=== PATIENT | male | born 1945 | race Caucasian/White ===

== ENCOUNTER 2020-07-15 08:59 | Day surgery (SDC) | payer MEDICARE, BC ==
[2020-07-15] VITALS (8 sets, daily range): BP systolic 127–137; BP diastolic 60–76
[~2020-07-15] VITALS: Ht 175.3 cm; Wt 102.6 kg
[2020-07-15] MEDS ORDERED: normal saline 1000ml 1,000 ML IV SCH ×4 (09:40→14:15)
[2020-07-15] MEDS ORDERED: cefazolin/dext.iso 2gm/100ml 100 ML IV ONE (09:40)
[2020-07-15] MEDS ORDERED: MIDAZolam 1mg/ml 10ml vial IV ONE (09:45)
[2020-07-15] MEDS ORDERED: fentaNYL/PF 50MCG/1 ML 2ML syringe IV ONE (09:45)
[2020-07-15 09:52] LABS: BASOPHILS % (AUTO) 0.6 % (0-1); EOSINOPHILS # (AUTO) 0.1 X10'3 (0-0.9); EOSINOPHILS % (AUTO) 2.1 % (0-6); HEMOGLOBIN 12.9 g/dl (14.0-17.9); LYMPHOCYTES # (AUTO) 0.8 X10'3 (1.1-4.8); LYMPHOCYTES % (AUTO) 14.7 % (21-51); MEAN CORPUSCULAR HEMOGLOBIN 26.2 PG (27.0-31.0); MEAN CORPUSCULAR HGB CONC 31.4 g/dL (33.0-36.5); MEAN CORPUSCULAR VOLUME 83.6 FL (78-98); MEAN PLATELET VOLUME 7.3 FL (7.4-10.4); MONOCYTES # (AUTO) 0.5 X10'3 (0-0.9); MONOCYTES % (AUTO) 9.2 % (2-12); NEUTROPHILS # (AUTO) 4.2 X10'3 (1.8-7.7); NEUTROPHILS % (AUTO) 73.4 % (42-75); PLATELET COUNT 248 X10'3 (140-440); RED BLOOD COUNT 4.91 X10'6 (4.70-6.10); RED CELL DISTRIBUTION WIDTH 17.4 % (11.5-14.5); WHITE BLOOD COUNT 5.7 X10'3 (4.5-11.0)
[2020-07-15] MEDS ORDERED: INSU100I31 SUBCUT (09:59)
[2020-07-15] MEDS ORDERED: BUPR-317 PO (09:59)
[2020-07-15] MEDS ORDERED: DAPA5TAB PO (09:59)
[2020-07-15] MEDS ORDERED: DULA0.75 SQ (09:59)
[2020-07-15] MEDS ORDERED: WARF4TAB69 PO (09:59)
[2020-07-15] MEDS ORDERED: ENOX100D5 SUBCUT (09:59)
[2020-07-15] MEDS ORDERED: SACU1TAB7 PO (09:59)
[2020-07-15] MEDS ORDERED: CITA10TA14 PO (09:59)
[2020-07-15] MEDS ORDERED: METF-900 PO (09:59)
[2020-07-15] MEDS ORDERED: POTA20TA19 PO (09:59)
[2020-07-15] MEDS ORDERED: FURO20TA4 PO (09:59)
[2020-07-15] MEDS ORDERED: PSYL0.4C2 PO (10:03)
[2020-07-15] MEDS ORDERED: TYLENOL (10:03)
[2020-07-15] MEDS ORDERED: MULT-1085 PO (10:03)
[2020-07-15] MEDS ORDERED: ASPI-1265 PO (10:03)
[2020-07-15] MEDS ORDERED: METAMUCIL PO (10:05)
[2020-07-15 10:07] LABS: ALBUMIN 3.8 G/DL (3.4-5.0); ANION GAP 7 (8-16); BLOOD UREA NITROGEN 18 MG/DL (7-18); BUN/CREATININE RATIO 13.8 (5.4-32.0); CALCIUM 8.5 MG/DL (8.5-10.1); CHLORIDE 105 MMOL/L (99-107); GLUCOSE 130 MG/DL (70-104); MAGNESIUM 1.8 MG/DL (1.5-2.4); POTASSIUM 4.4 MMOL/L (3.5-5.1); SODIUM 141 MMOL/L (135-145); eGFR 54 ML/MIN
[2020-07-15] MEDS ORDERED: midazolam 1 mg/ML 2ml injection ONE ×4 (11:31→13:32)
[2020-07-15] MEDS ORDERED: LIDOcaine 1% W/epiNEPHrine 1:100,000 20ml vial ONE (11:32)
[2020-07-15] MEDS ORDERED: ceFAZolin 1000mg inj ONE (11:32)
[2020-07-15] MEDS ORDERED: fentaNYL/PF 50MCG/1 ML 2ML syringe ONE ×3 (11:32→13:32)
[2020-07-15] MEDS ORDERED: vancomycin 1,000mg inj ONE (11:33)
[2020-07-15] MEDS ORDERED: amiodarone/D5 360MG/200ML BAG 200 ML IV ONE (12:00)
[2020-07-15] MEDS ORDERED: LIDOcaine 2% 10ml TOPICAL JELLY (Urojet) ONE (12:04)
[2020-07-15] MEDS ORDERED: proCHLORperazine 10 MG/2 ml inj ONE (12:16)
[2020-07-15] MEDS ORDERED: iohexol 350 MG/ML 50ML vial IV ONE ×2 (12:21→12:49)
[2020-07-15] MEDS ORDERED: HYDROcodone/acetaminophen 5mg/325mg tablet PO PRN (14:15)
[2020-07-15] MEDS ORDERED: HYDROcodone/acetaminophen 10/325mg tab PO PRN (14:15)
== END 2020-07-15 16:40 | disposition home or self-care (01) ==
LOC: SSTAY O 08:59
PROVIDERS: ATTEND Internal Medicine Cardiovascular Disease
DX: I42.0 Dilated cardiomyopathy (principal); I44.7 Left bundle-branch block, unspecified; E11.9 Type 2 diabetes mellitus without complications; I11.0 Hypertensive heart disease with heart failure; I50.22 Chronic systolic (congestive) heart failure; E78.49 Other hyperlipidemia; Z95.2 Presence of prosthetic heart valve; Z79.84 Long term (current) use of oral hypoglycemic drugs; Z79.82 Long term (current) use of aspirin; Z79.899 Other long term (current) drug therapy; Z96.651 Presence of right artificial knee joint; Z85.828 Personal history of other malignant neoplasm of skin; Z72.89 Other problems related to lifestyle; Z80.9 Family history of malignant neoplasm, unspecified; Z82.49 Family history of ischemic heart disease and other diseases of the circulatory system; Z79.01 Long term (current) use of anticoagulants
CPT/HCPCS: 33225; 33249; 36415; 71045; 80048; 82948; 83735; 85025; 85610; 92960; 93005; 99152; 99153; C1769; C1882; C1887; C1894; C1895; C1900; J0690; J0780; J2250; J3010; J3370; Q9967; A4565; A4620; A6258

== ENCOUNTER 2020-08-05 07:12 | Day surgery (SDC) | payer MEDICARE, BC ==
[2020-08-05] VITALS (9 sets, daily range): BP systolic 122–131; BP diastolic 68–80
[~2020-08-05] VITALS: Ht 15.2 cm; Wt 101.7 kg
[~2020-08-05 07:12] MED LIST: ASPI-1265 PO; BUPR-317 PO; CITA10TA14 PO; DAPA5TAB PO; DULA0.75 SQ; ENOX100D5 SUBCUT; FURO20TA4 PO; INSU100I31 SUBCUT; METAMUCIL PO; METF-900 PO; MULT-1085 PO; POTA20TA19 PO; SACU1TAB7 PO; TYLENOL; WARF4TAB69 PO
[2020-08-05] MEDS ORDERED: LIDOcaine 1% W/epiNEPHrine 1:100,000 20ml vial ONE (07:56)
[2020-08-05] MEDS ORDERED: fentaNYL/PF 50MCG/1 ML 2ML syringe ONE (07:56)
[2020-08-05] MEDS ORDERED: midazolam 1 mg/ML 2ml injection ONE ×2 (07:56→09:43)
[2020-08-05] MEDS ORDERED: vancomycin 1,000mg inj ONE (07:56)
[2020-08-05] MEDS ORDERED: AMIO200T61 PO (07:59)
[2020-08-05] MEDS ORDERED: ATOR40TA72 PO (07:59)
[2020-08-05] MEDS ORDERED: cefazolin/dext.iso 2gm/100ml 100 ML IV ONE (08:00)
[2020-08-05 08:27] LABS: ALBUMIN 3.7 G/DL (3.4-5.0); ANION GAP 8 (8-16); BLOOD UREA NITROGEN 19 MG/DL (7-18); BUN/CREATININE RATIO 14.5 (5.4-32.0); CALCIUM 8.7 MG/DL (8.5-10.1); CHLORIDE 104 MMOL/L (99-107); CREATININE 1.31 MG/DL (0.60-1.10); GLUCOSE 128 MG/DL (70-104); MAGNESIUM 1.8 MG/DL (1.5-2.4); POTASSIUM 4.7 MMOL/L (3.5-5.1); SODIUM 140 MMOL/L (135-145); TOTAL CARBON DIOXIDE 28.4 MMOL/L (24-32); eGFR 53 ML/MIN
[2020-08-05 08:28] LABS: BASOPHILS % (AUTO) 0.5 % (0-1); EOSINOPHILS # (AUTO) 0.1 X10'3 (0-0.9); HEMATOCRIT 38.4 % (42.0-52.0); HEMOGLOBIN 12.5 g/dl (14.0-17.9); LYMPHOCYTES # (AUTO) 0.7 X10'3 (1.1-4.8); LYMPHOCYTES % (AUTO) 11.2 % (21-51); MEAN CORPUSCULAR HGB CONC 32.6 g/dL (33.0-36.5); MEAN CORPUSCULAR VOLUME 85.9 FL (78-98); MONOCYTES # (AUTO) 0.6 X10'3 (0-0.9); MONOCYTES % (AUTO) 9.3 % (2-12); NEUTROPHILS # (AUTO) 4.8 X10'3 (1.8-7.7); PLATELET COUNT 320 X10'3 (140-440); RED BLOOD COUNT 4.47 X10'6 (4.70-6.10); RED CELL DISTRIBUTION WIDTH 19.1 % (11.5-14.5); WHITE BLOOD COUNT 6.2 X10'3 (4.5-11.0)
--- NOTE | 2020-08-05 09:20 | NUR ---
Pt left unit for procedure
[2020-08-05 09:30] LABS: PLATELET ESTIMATE NORMAL
[2020-08-05 09:31] LABS: ANISOCYTOSIS 2+
[2020-08-05] MEDS ORDERED: ketorolac tromethamine 15mg/ml inj. IV PRN (10:55)
[2020-08-05] MEDS ORDERED: normal saline 1000ml 1,000 ML IV SCH (10:55)
--- NOTE | 2020-08-05 11:16 | NUR ---
Pt voided 250ml clear, dark yellow
== END 2020-08-05 13:55 | disposition home or self-care (01) ==
LOC: SSTAY O 07:12
PROVIDERS: ATTEND Internal Medicine Cardiovascular Disease
DX: T82.867A Thrombosis due to cardiac prosthetic devices, implants and grafts, initial encounter (principal); I42.8 Other cardiomyopathies; I50.22 Chronic systolic (congestive) heart failure; I44.7 Left bundle-branch block, unspecified; E78.2 Mixed hyperlipidemia; E11.9 Type 2 diabetes mellitus without complications; I10 Essential (primary) hypertension; Z95.810 Presence of automatic (implantable) cardiac defibrillator; Z95.2 Presence of prosthetic heart valve; Z96.651 Presence of right artificial knee joint; Z98.890 Other specified postprocedural states; Z72.89 Other problems related to lifestyle; Z79.01 Long term (current) use of anticoagulants; Z79.899 Other long term (current) drug therapy; Z79.84 Long term (current) use of oral hypoglycemic drugs; Z80.9 Family history of malignant neoplasm, unspecified; Z82.49 Family history of ischemic heart disease and other diseases of the circulatory system; Y83.8 Other surgical procedures as the cause of abnormal reaction of the patient, or of later complication, without mention of misadventure at the time of the procedure; Y92.89 Other specified places as the place of occurrence of the external cause
CPT/HCPCS: 33223; 36415; 80048; 82948; 83735; 85025; 85610; 87070; 87077; 87186; 93005; 99152; 99153; J2250; J3010; J3370; J7030; 33222; 85008; A4620; A6260; A6449

== ENCOUNTER 2021-07-24 07:25 | Emergency (ER) | payer MEDICARE, BC ==
[~2021-07-24] VITALS: Ht 182.9 cm; Wt 100.0 kg
[~2021-07-24 07:25] MED LIST changes: +AMIO200T61 PO; +ATOR40TA72 PO; -ENOX100D5 SUBCUT; -POTA20TA19 PO
[2021-07-24 08:16] VITALS: BP 124/75
--- NOTE | 2021-07-24 08:29 | NUR ---
dr. gomez at bedside.
--- NOTE | 2021-07-24 08:49 | NUR ---
PT TO XRAY VIA WHEELCHAIR.
== END 2021-07-24 09:30 | disposition home or self-care (01) ==
LOC: ER 07:25
DX: S61.412A Laceration without foreign body of left hand, initial encounter (principal); M54.50 Low back pain, unspecified; I11.0 Hypertensive heart disease with heart failure; I50.9 Heart failure, unspecified; E11.9 Type 2 diabetes mellitus without complications; Z95.0 Presence of cardiac pacemaker; Z88.8 Allergy status to other drugs, medicaments and biological substances; Z79.4 Long term (current) use of insulin; Z79.82 Long term (current) use of aspirin; Z79.899 Other long term (current) drug therapy; W19.XXXA Unspecified fall, initial encounter; Y93.89 Activity, other specified; Y92.89 Other specified places as the place of occurrence of the external cause; Y99.8 Other external cause status
CPT/HCPCS: 12002; 72170; 99284

== ENCOUNTER 2021-12-05 07:26 | Day surgery (SDC) | payer MEDICARE, BC ==
[~2021-12-05] VITALS: Ht 182.9 cm; Wt 97.4 kg
[2021-12-05] VITALS (14 sets, daily range): BP systolic 116–128; BP diastolic 72–84
[2021-12-05] MEDS ORDERED: MIDAZolam 1mg/ml 10ml vial IV ONE (08:00)
[2021-12-05] MEDS ORDERED: fentaNYL/PF 50MCG/1 ML 2ML syringe IV ONE (08:00)
[2021-12-05] MEDS ORDERED: normal saline 1000ml 1,000 ML IV SCH (08:00)
[2021-12-05 08:39] LABS: BASOPHILS # (AUTO) 0.1 X10'3 (0-0.2); BASOPHILS % (AUTO) 0.8 % (0-1); EOSINOPHILS # (AUTO) 0.1 X10'3 (0-0.9); EOSINOPHILS % (AUTO) 1.9 % (0-6); HEMATOCRIT 43.5 % (42.0-52.0); HEMOGLOBIN 14.1 g/dl (14.0-17.9); LYMPHOCYTES % (AUTO) 13.6 % (21-51); MEAN CORPUSCULAR HEMOGLOBIN 27.7 PG (27.0-31.0); MEAN CORPUSCULAR HGB CONC 32.3 g/dL (33.0-36.5); MEAN CORPUSCULAR VOLUME 85.8 FL (78-98); MONOCYTES # (AUTO) 0.7 X10'3 (0-0.9); MONOCYTES % (AUTO) 9.6 % (2-12); NEUTROPHILS # (AUTO) 5.2 X10'3 (1.8-7.7); NEUTROPHILS % (AUTO) 74.1 % (42-75); PLATELET COUNT 289 X10'3 (140-440); RED BLOOD COUNT 5.08 X10'6 (4.70-6.10); RED CELL DISTRIBUTION WIDTH 17.8 % (11.5-14.5)
[2021-12-05] MEDS ORDERED: FERR324T PO (08:42)
[2021-12-05] MEDS ORDERED: MAGN400C PO (08:42)
[2021-12-05] MEDS ORDERED: EPLE25TA4 PO (08:42)
[2021-12-05] MEDS ORDERED: WARF-55 PO (08:42)
[2021-12-05] MEDS ORDERED: DAPA10TA PO (08:42)
[2021-12-05] MEDS ORDERED: METO-539 PO (08:42)
[2021-12-05 08:58] LABS: ALBUMIN 4.5 G/DL (3.4-5.0); ANION GAP 10 (8-16); BLOOD UREA NITROGEN 16 MG/DL (7-18); BUN/CREATININE RATIO 11.5 (5.4-32.0); CALCIUM 9.4 MG/DL (8.5-10.1); CHLORIDE 103 MMOL/L (99-107); CREATININE 1.39 MG/DL (0.60-1.10); GLUCOSE 103 MG/DL (70-104); POTASSIUM 4.9 MMOL/L (3.5-5.1); SODIUM 141 MMOL/L (135-145); TOTAL CARBON DIOXIDE 27.6 MMOL/L (24-32); eGFR 50 ML/MIN
== END 2021-12-05 11:35 | disposition home or self-care (01) ==
LOC: SSTAY O 07:26
PROVIDERS: ATTEND Internal Medicine Cardiovascular Disease
DX: I48.91 Unspecified atrial fibrillation (principal); I42.9 Cardiomyopathy, unspecified; E11.9 Type 2 diabetes mellitus without complications; I48.4 Atypical atrial flutter; I10 Essential (primary) hypertension; E78.5 Hyperlipidemia, unspecified; Z96.651 Presence of right artificial knee joint; Z88.6 Allergy status to analgesic agent; Z82.49 Family history of ischemic heart disease and other diseases of the circulatory system; Z79.899 Other long term (current) drug therapy; Z98.890 Other specified postprocedural states; Z95.810 Presence of automatic (implantable) cardiac defibrillator; Z95.2 Presence of prosthetic heart valve; Z79.01 Long term (current) use of anticoagulants; Z80.8 Family history of malignant neoplasm of other organs or systems; Z72.89 Other problems related to lifestyle
CPT/HCPCS: 36415; 80048; 82948; 83735; 84443; 85025; 85610; 92960; 93005; J2250; J3010; J7030; A4620

== ENCOUNTER 2023-01-05 12:35 | Inpatient (IN) | payer MEDICARE, BC ==
[~2023-01-05] VITALS: Ht 188 cm; Wt 97.0 kg
[~2023-01-05 12:35] MED LIST changes: +AMI200T PO; -AMIO200T61 PO; +DAPA10TA PO; -DAPA5TAB PO; +EPLE25TA4 PO; +FERR324T PO; +MAGN400C PO; +METO-539 PO; +WARF-55 PO; -WARF4TAB69 PO
[2023-01-05 13:02] LABS: BASOPHILS % (AUTO) 0.5 % (0-1); EOSINOPHILS % (AUTO) 0.6 % (0-6); HEMATOCRIT 37.7 % (42.0-52.0); HEMOGLOBIN 12.1 g/dl (14.0-17.9); LYMPHOCYTES # (AUTO) 0.7 X10'3 (1.1-4.8); MEAN CORPUSCULAR HEMOGLOBIN 27.3 PG (27.0-31.0); MEAN CORPUSCULAR HGB CONC 32.2 g/dL (33.0-36.5); MEAN CORPUSCULAR VOLUME 84.9 FL (78-98); MEAN PLATELET VOLUME 7.1 FL (7.4-10.4); MONOCYTES # (AUTO) 0.7 X10'3 (0-0.9); MONOCYTES % (AUTO) 11.6 % (2-12); NEUTROPHILS # (AUTO) 4.5 X10'3 (1.8-7.7); NEUTROPHILS % (AUTO) 75.3 % (42-75); PLATELET COUNT 282 X10'3 (140-440); RED BLOOD COUNT 4.44 X10'6 (4.70-6.10)
[2023-01-05 13:10] LABS: ALANINE AMINOTRANSFERASE 21 U/L (12-78); ALBUMIN 3.6 G/DL (3.4-5.0); ALBUMIN/GLOBULIN RATIO 1.1 (1.1-1.5); ALKALINE PHOSPHATASE 99 IU/L (46-116); ANION GAP 8 (8-16); ASPARTATE AMINO TRANSFERASE 19 U/L (10-37); BILIRUBIN,TOTAL 0.5 MG/DL (0.1-1.0); BLOOD UREA NITROGEN 23 MG/DL (7-18); CHLORIDE 101 MMOL/L (99-107); CREATININE 1.64 MG/DL (0.60-1.10); GLUCOSE 110 MG/DL (70-104); POTASSIUM 4.2 MMOL/L (3.5-5.1); SODIUM 136 MMOL/L (135-145); TOTAL CARBON DIOXIDE 27.5 MMOL/L (24-32); TOTAL PROTEIN 6.9 G/DL (6.4-8.2); eCRCL 42 ML/MIN; eGFR 41 ML/MIN
[2023-01-05 13:17] LABS: PRO BRAIN NATRIURETIC PEPTIDE 3084 PG/ML (0-450)
[2023-01-05 13:48] LABS: APTT 38 SECONDS (22-32); INR 2.5 INR; PROTHROMBIN TIME 25.1 SECONDS (9.0-12.0)
[2023-01-05] MEDS ORDERED: iohexol 350MG/ML 100ml bottle IV ONE (14:23)
[2023-01-05] MEDS ORDERED: ringers solution, lacted 1,000 ML IV ONE (15:35)
--- NOTE | 2023-01-05 15:39 | NUR ---
assumed care of the patient. pt moved from room 18 to 7
[2023-01-05] MEDS ORDERED: magnesium 4gm in 100ml NS 100 ML IV PRN (17:00)
[2023-01-05] MEDS ORDERED: insulin Lispro (HumaLOG) vial - multi-dose SQ SCH (17:00)
[2023-01-05] MEDS ORDERED: MESSAGE TO PHARMACY PO ONE (17:00)
[2023-01-05] MEDS ORDERED: potassium Cl 40MEQ/1/2NS 520ml 520 ML IV PRN (17:00)
[2023-01-05] MEDS ORDERED: mag hydrox/Alum hydrox/simeth 30ml oral suspension PO PRN (17:00)
[2023-01-05] MEDS ORDERED: glucagon, human recombinant 1mg kit SUBCUT PRN (17:00)
[2023-01-05] MEDS ORDERED: potassium Cl 20 mEq SR tablet PO PRN ×2 (17:00)
[2023-01-05] MEDS ORDERED: DEXTROSE 15 GM of carb/4 tabs (each vial/BOTTLE has 4 tablets) PO PRN ×2 (17:00)
[2023-01-05] MEDS ORDERED: ondansetron/PF 4mg/2ml inj IV PRN (17:00)
[2023-01-05] MEDS ORDERED: dextrose 50%-water 50ml dispensing syringe IV PRN ×2 (17:00)
[2023-01-05] MEDS ORDERED: magnesium 2GM in 50ml NS 50 ML IV PRN (17:00)
--- NOTE | 2023-01-05 18:16 | NUR ---
pt placed on a hospital bed
--- NOTE | 2023-01-05 19:11 | NUR ---
Isabelle, daughter, okay to update - [phone]
[2023-01-05] MEDS: metoprolol succinate 25mg (24-HOUR) SR. Tablet PO SCH (20:00)
[2023-01-05] MEDS: docusate sod 100mg capsule PO SCH (20:00)
[2023-01-05] MEDS: K and/or MAG REPLACEMENT MC SCH (20:10)
[2023-01-05] MEDS: insulin glargine (Lantus) pen - multi-dose SQ SCH (20:10)
[2023-01-05] MEDS: warfarin 5mg tablet PO SCH (21:14)
--- NOTE | 2023-01-06 03:00 | NUR ---
unable to draw pts AM labs.
--- NOTE | 2023-01-06 04:43 | NUR ---
pt upset about another patient in dept screaming, stating "someone needs to care for that patient, the care here needs to be better," also requesting to be transferred to [facility]. RN educated this pt that every pt in dept is being cared for and some people just scream for multiple reasons. curtain and door remain closed for this pt to reduce loudness. call light within reach, no current needs at this time.
--- NOTE | 2023-01-06 05:40 | NUR ---
pt threw gown on floor, RN asked pt if he wanted a new gown and he replied "no i got it." RN set new gown on bed.
--- NOTE | 2023-01-06 05:59 | NUR ---
when pt took off gown, IV ripped out. new IB started 20g to R FA. morning labs drawn with IV start.
[2023-01-06 06:11] LABS: BASOPHILS % (AUTO) 0.4 % (0-1); EOSINOPHILS % (AUTO) 0.3 % (0-6); HEMATOCRIT 36.9 % (42.0-52.0); LYMPHOCYTES % (AUTO) 14.6 % (21-51); MEAN CORPUSCULAR HEMOGLOBIN 27.6 PG (27.0-31.0); MEAN CORPUSCULAR HGB CONC 32.5 g/dL (33.0-36.5); MEAN CORPUSCULAR VOLUME 84.9 FL (78-98); MONOCYTES # (AUTO) 0.8 X10'3 (0-0.9); MONOCYTES % (AUTO) 12.6 % (2-12); NEUTROPHILS # (AUTO) 4.8 X10'3 (1.8-7.7); NEUTROPHILS % (AUTO) 72.1 % (42-75); PLATELET COUNT 279 X10'3 (140-440); RED BLOOD COUNT 4.35 X10'6 (4.70-6.10); RED CELL DISTRIBUTION WIDTH 17.9 % (11.5-14.5); WHITE BLOOD COUNT 6.7 X10'3 (4.5-11.0)
[2023-01-06 06:19] LABS: INR 2.3 INR; PROTHROMBIN TIME 23.2 SECONDS (9.0-12.0)
[2023-01-06 06:23] LABS: ALANINE AMINOTRANSFERASE 22 U/L (12-78); ALBUMIN 3.7 G/DL (3.4-5.0); ALBUMIN/GLOBULIN RATIO 1.1 (1.1-1.5); ALKALINE PHOSPHATASE 103 IU/L (46-116); ANION GAP 5 (8-16); ASPARTATE AMINO TRANSFERASE 12 U/L (10-37); BILIRUBIN,TOTAL 0.5 MG/DL (0.1-1.0); BLOOD UREA NITROGEN 24 MG/DL (7-18); BUN/CREATININE RATIO 14.3 (10.0-20.0); CALCIUM 9.5 MG/DL (8.5-10.1); CHLORIDE 102 MMOL/L (99-107); CHOL/HDL RATIO 2.6 (0.00-4.99); CHOLESTEROL 122 MG/DL (0-200); CREATININE 1.68 MG/DL (0.60-1.10); GLUCOSE 117 MG/DL (70-104); HDL CHOLESTEROL 47 MG/DL (35-60); LDL CHOLESTEROL 58 MG/DL (50-100); POTASSIUM 4.2 MMOL/L (3.5-5.1); SODIUM 136 MMOL/L (135-145); TOTAL CARBON DIOXIDE 29.1 MMOL/L (24-32); TRIGLYCERIDES 94 MG/DL (20-135); eCRCL 41 ML/MIN; eGFR 40 ML/MIN
[2023-01-06] MEDS: acetaminophen 325mg tablet PO PRN ×2 (06:41→16:57)
[2023-01-06] MEDS: K and/or MAG REPLACEMENT MC SCH ×2 (07:03→20:00)
[2023-01-06] MEDS: docusate sod 100mg capsule PO SCH ×2 (07:11→22:01)
[2023-01-06] MEDS: metoprolol succinate 25mg (24-HOUR) SR. Tablet PO SCH ×2 (07:12→22:01)
[2023-01-06] MEDS: buPROPion SR 150mg tablet PO SCH (07:12)
[2023-01-06] MEDS: aspirin 81mg tab.chew PO SCH (07:13)
[2023-01-06] MEDS: atorvastatin 20mg tablet PO SCH (07:13)
[2023-01-06] MEDS: multivitamins, therapeutics tablet PO SCH (07:13)
[2023-01-06] MEDS: magnesium oxide 400mg tablet PO SCH (07:14)
[2023-01-06] MEDS: amiodarone 200mg tablet PO SCH (07:14)
[2023-01-06] MEDS: CITALOpram 10mg tablet PO SCH (07:14)
[2023-01-06] MEDS: ferrous gluconate 324mg tablet PO SCH (08:25)
[2023-01-06] MEDS: sacubitril/valsartan 49mg-51mg tablet PO SCH (08:25)
[2023-01-06] MEDS: DAPAGLIFLOZIN 10MG TABLET PO SCH (08:26)
--- NOTE | 2023-01-06 09:07 | NUR ---
THIS RN WAS GATHERING LAB DRAW SUPPLIES FOR ANOTHER PT WHEN DEIRDRE MIKE CALLED FOR HELP IN PTS ROOM. PT HAD LOST BALANCE AND FALLEN ONTO HIS BOTTOM. PT DENIES PAIN. VSS 143/84, AR 66 DR BRAMBILA NOTIFIED, FAMILY NOTIFIED, STUDENT DEVELOPMENT COORDINATOR NOTIFIED
--- NOTE | 2023-01-06 09:21 | NUR ---
occurence report completed per protocol
--- NOTE | 2023-01-06 09:34 | NUR ---
DR BRAMBILA AT BEDSIDE TO DISCUSS FALL. NO NEW ORDERS
--- NOTE | 2023-01-06 11:50 | NUR ---
PT REPEATEDLY TRIGGERING BED ALARM AND REQUIRES FREQUENT REMINDING NOT TO GET UP WITHOUT ASSISTANCE. CALL LIGHT PLACED IN REACH BED RAILS UP X3
--- NOTE | 2023-01-06 13:00 | NUR ---
pt needs to be consistently reminded not to get up. bed alarm is still in place.
[2023-01-06] MEDS ORDERED: ondansetron 4mg rapidly disintigrating tab PO PRN (13:46)
--- NOTE | 2023-01-06 15:58 | NUR ---
Called pt.'s per his request and informed her that pt would like her to come visit. She states she will be unable to come today.
--- NOTE | 2023-01-06 16:45 | NUR ---
pt's at bedside. she was updated on plan of care and patient's status.
--- NOTE | 2023-01-06 18:11 | NUR ---
pt continues to try and get up. pt reminded that he needs to stay in bed. bed alarm is still in place.
--- NOTE | 2023-01-06 19:09 | NUR ---
Pt arrived from ER via hospital bed. Pt awake and alert, not oriented to time, place, events.
[2023-01-06 19:11] VITALS: BP 125/66; PULSE 61; RESP 20; TEMP 96.6; O2SAT 93
[2023-01-06 20:00] VITALS: RESP 16; O2SAT 96
[2023-01-06] MEDS: insulin glargine (Lantus) pen - multi-dose SQ SCH (21:00)
[2023-01-06 21:59] VITALS: BP 116/68; PULSE 61; RESP 18; TEMP 97.1; O2SAT 94
[2023-01-06] MEDS: warfarin 5mg tablet PO SCH (22:12)
--- NOTE | 2023-01-06 23:15 | NUR ---
Pt up and trying to get out of bed and is very agitated. Pt wanted to put clothes on and go home immediately. I did help pt put on home clothes for comfort and familiarity but then called pt who was able to calm pt down after about 30 minutes of patient agitation. Situation resolved successfully and patient agreed to stay for the night as long as we left him alone. I did agree to that and will try to make interactions as minimal as possible tonight.
[2023-01-07 02:00] VITALS: BP 141/72; PULSE 67; RESP 18; TEMP 97; O2SAT 96
[2023-01-07 06:06] VITALS: BP 114/67; PULSE 60; RESP 15; TEMP 97.9; O2SAT 97
--- NOTE | 2023-01-07 06:24 | NUR ---
Problems reprioritized. Patient report given, questions answered & plan of care reviewed with Tono LARA).
[2023-01-07 06:57] LABS: BASOPHILS % (AUTO) 0.6 % (0-1); EOSINOPHILS # (AUTO) 0.1 X10'3 (0-0.9); EOSINOPHILS % (AUTO) 1.6 % (0-6); HEMATOCRIT 33.1 % (42.0-52.0); HEMOGLOBIN 10.7 g/dl (14.0-17.9); LYMPHOCYTES # (AUTO) 0.9 X10'3 (1.1-4.8); LYMPHOCYTES % (AUTO) 14.9 % (21-51); MEAN CORPUSCULAR HEMOGLOBIN 27.2 PG (27.0-31.0); MEAN CORPUSCULAR HGB CONC 32.3 g/dL (33.0-36.5); MEAN CORPUSCULAR VOLUME 84.3 FL (78-98); MEAN PLATELET VOLUME 7.3 FL (7.4-10.4); MONOCYTES # (AUTO) 0.8 X10'3 (0-0.9); MONOCYTES % (AUTO) 13.1 % (2-12); NEUTROPHILS # (AUTO) 4.3 X10'3 (1.8-7.7); NEUTROPHILS % (AUTO) 69.8 % (42-75); PLATELET COUNT 234 X10'3 (140-440); RED BLOOD COUNT 3.93 X10'6 (4.70-6.10); RED CELL DISTRIBUTION WIDTH 17.6 % (11.5-14.5); WHITE BLOOD COUNT 6.2 X10'3 (4.5-11.0)
[2023-01-07] MEDS: K and/or MAG REPLACEMENT MC SCH ×2 (07:02→20:00)
[2023-01-07 07:08] LABS: INR 3.2 INR; PROTHROMBIN TIME 31.9 SECONDS (9.0-12.0)
[2023-01-07 07:12] LABS: ALANINE AMINOTRANSFERASE 20 U/L (12-78); ALBUMIN 3.2 G/DL (3.4-5.0); ALBUMIN/GLOBULIN RATIO 1.1 (1.1-1.5); ALKALINE PHOSPHATASE 91 IU/L (46-116); ANION GAP 5 (8-16); ASPARTATE AMINO TRANSFERASE 14 U/L (10-37); BILIRUBIN,TOTAL 0.4 MG/DL (0.1-1.0); BLOOD UREA NITROGEN 28 MG/DL (7-18); BUN/CREATININE RATIO 18.7 (10.0-20.0); CHLORIDE 105 MMOL/L (99-107); GLUCOSE 134 MG/DL (70-104); MAGNESIUM 2.1 MG/DL (1.5-2.4); POTASSIUM 4.1 MMOL/L (3.5-5.1); SODIUM 139 MMOL/L (135-145); TOTAL CARBON DIOXIDE 28.8 MMOL/L (24-32); TOTAL PROTEIN 6.2 G/DL (6.4-8.2); eCRCL 49 ML/MIN; eGFR 46 ML/MIN
[2023-01-07 07:20] VITALS: RESP 16
[2023-01-07] MEDS: aspirin 81mg tab.chew PO SCH (09:11)
[2023-01-07] MEDS: multivitamins, therapeutics tablet PO SCH (09:11)
[2023-01-07] MEDS: atorvastatin 20mg tablet PO SCH (09:11)
[2023-01-07] MEDS: magnesium oxide 400mg tablet PO SCH (09:12)
[2023-01-07] MEDS: docusate sod 100mg capsule PO SCH ×2 (09:12→22:11)
[2023-01-07] MEDS: ferrous gluconate 324mg tablet PO SCH (09:12)
[2023-01-07] MEDS: amiodarone 200mg tablet PO SCH (09:12)
[2023-01-07] MEDS: metoprolol succinate 25mg (24-HOUR) SR. Tablet PO SCH ×2 (09:12→22:10)
[2023-01-07] MEDS: buPROPion SR 150mg tablet PO SCH (09:12)
[2023-01-07] MEDS: sacubitril/valsartan 49mg-51mg tablet PO SCH (11:05)
[2023-01-07] MEDS: CITALOpram 10mg tablet PO SCH (11:05)
[2023-01-07] MEDS: DAPAGLIFLOZIN 10MG TABLET PO SCH (11:06)
[2023-01-07] MEDS ORDERED: ziprasidone IM 20mg inj **IM only IM ONE (13:55)
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
--- NOTE | 2023-01-07 16:53 | NUR ---
refused vital signs
--- NOTE | 2023-01-07 18:51 | NUR ---
Patient in room PCU 3017. I have received report from Tono (CEE) and had the opportunity to ask questions and assume patient care.
--- NOTE | 2023-01-07 18:56 | NUR ---
Pt trying to get out of bed. Redirected to bed, advised to use call light.
[2023-01-07 20:00] VITALS: RESP 14; O2SAT 98
[2023-01-07 20:40] VITALS: BP 139/83; PULSE 70; RESP 16; TEMP 97.6; O2SAT 96
[2023-01-07] MEDS: insulin glargine (Lantus) pen - multi-dose SQ SCH (21:00)
[2023-01-07] MEDS ORDERED: warfarin 2.5mg tablet PO ONE (21:00)
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
[2023-01-07] MEDS: ziprasidone IM 20mg inj **IM only IM PRN (21:34)
--- NOTE | 2023-01-07 22:01 | NUR ---
Placed pt in bed with help of security. Pt in restraints, order obtained from . Daughter Isabelle notified who gave consent.
[2023-01-08 00:16] VITALS: BP 127/73; PULSE 58; RESP 19; TEMP 98; O2SAT 95
--- NOTE | 2023-01-08 00:26 | NUR ---
Pt awoke extremely agitated and angry. Pt refusing drink, refusing urinal, refusing to be touched. Telemonitor is currently not on as patient too agitated to participate. Advised pt that restraints would be removed when himself and staff were safe for restraints to be discontinued.
--- NOTE | 2023-01-08 03:04 | NUR ---
Pt awoke c/o need to urinate. I did assist pt with urination via urinal. Pt was calmer and aquiescent to care. Vital signs taken, counter hand reestablished on tele 17. Will continue to monitor and take off bilateral wrist restraints if warranted.
[2023-01-08 03:05] VITALS: BP 145/81; PULSE 66; RESP 17; TEMP 97.7; O2SAT 97
--- NOTE | 2023-01-08 04:15 | NUR ---
Pt agitated, trying to get out of bed again, demanding restraints be taken off. Explained to pt reason for restraints and requirements for restraints to be taken off, which are compliance with nursing directives, specifically, not getting out of bed without using call light, not threatening staff.
[2023-01-08 06:06] VITALS: BP 139/73; PULSE 68; RESP 16; TEMP 98.2; O2SAT 93
--- NOTE | 2023-01-08 06:21 | NUR ---
Problems reprioritized. Patient report given, questions answered & plan of care reviewed with Tono LARA).
[2023-01-08] MEDS: K and/or MAG REPLACEMENT MC SCH (06:41)
[2023-01-08 06:51] LABS: BASOPHILS % (AUTO) 0.3 % (0-1); EOSINOPHILS # (AUTO) 0.1 X10'3 (0-0.9); EOSINOPHILS % (AUTO) 1.1 % (0-6); HEMATOCRIT 38.9 % (42.0-52.0); HEMOGLOBIN 12.4 g/dl (14.0-17.9); LYMPHOCYTES # (AUTO) 0.8 X10'3 (1.1-4.8); LYMPHOCYTES % (AUTO) 9.2 % (21-51); MEAN CORPUSCULAR HEMOGLOBIN 27.1 PG (27.0-31.0); MEAN CORPUSCULAR HGB CONC 31.8 g/dL (33.0-36.5); MEAN CORPUSCULAR VOLUME 85.1 FL (78-98); MEAN PLATELET VOLUME 7.3 FL (7.4-10.4); MONOCYTES # (AUTO) 0.9 X10'3 (0-0.9); MONOCYTES % (AUTO) 9.7 % (2-12); NEUTROPHILS # (AUTO) 7.2 X10'3 (1.8-7.7); NEUTROPHILS % (AUTO) 79.7 % (42-75); PLATELET COUNT 299 X10'3 (140-440); RED BLOOD COUNT 4.57 X10'6 (4.70-6.10); RED CELL DISTRIBUTION WIDTH 18.4 % (11.5-14.5); WHITE BLOOD COUNT 9.1 X10'3 (4.5-11.0)
[2023-01-08 06:58] LABS: INR 3.8 INR; PROTHROMBIN TIME 37.6 SECONDS (9.0-12.0)
[2023-01-08 07:08] LABS: ALANINE AMINOTRANSFERASE 25 U/L (12-78); ALBUMIN 3.8 G/DL (3.4-5.0); ALBUMIN/GLOBULIN RATIO 1.1 (1.1-1.5); ALKALINE PHOSPHATASE 119 IU/L (46-116); ANION GAP 8 (8-16); ASPARTATE AMINO TRANSFERASE 15 U/L (10-37); BILIRUBIN,TOTAL 0.6 MG/DL (0.1-1.0); BLOOD UREA NITROGEN 27 MG/DL (7-18); BUN/CREATININE RATIO 16.1 (10.0-20.0); CALCIUM 9.8 MG/DL (8.5-10.1); CHLORIDE 103 MMOL/L (99-107); CREATININE 1.68 MG/DL (0.60-1.10); GLUCOSE 148 MG/DL (70-104); MAGNESIUM 2.2 MG/DL (1.5-2.4); POTASSIUM 3.9 MMOL/L (3.5-5.1); SODIUM 139 MMOL/L (135-145); TOTAL CARBON DIOXIDE 28.2 MMOL/L (24-32); TOTAL PROTEIN 7.4 G/DL (6.4-8.2); eCRCL 43 ML/MIN; eGFR 40 ML/MIN
[2023-01-08] MEDS: ziprasidone IM 20mg inj **IM only IM PRN (07:15)
[2023-01-08 07:34] VITALS: RESP 16; O2SAT 93
[2023-01-08] MEDS: docusate sod 100mg capsule PO SCH (09:18)
[2023-01-08] MEDS: buPROPion SR 150mg tablet PO SCH (09:18)
[2023-01-08] MEDS: atorvastatin 20mg tablet PO SCH (09:19)
[2023-01-08] MEDS: ferrous gluconate 324mg tablet PO SCH (09:19)
[2023-01-08] MEDS: metoprolol succinate 25mg (24-HOUR) SR. Tablet PO SCH (09:19)
[2023-01-08] MEDS: aspirin 81mg tab.chew PO SCH (09:19)
[2023-01-08] MEDS: amiodarone 200mg tablet PO SCH (09:19)
[2023-01-08] MEDS: multivitamins, therapeutics tablet PO SCH (09:19)
[2023-01-08] MEDS: magnesium oxide 400mg tablet PO SCH (09:19)
[2023-01-08] MEDS: sacubitril/valsartan 49mg-51mg tablet PO SCH (10:52)
[2023-01-08] MEDS: DAPAGLIFLOZIN 10MG TABLET PO SCH (10:55)
[2023-01-08] MEDS: CITALOpram 10mg tablet PO SCH (10:55)
[2023-01-08 11:11] VITALS: BP 144/87; PULSE 69; RESP 24; TEMP 98.9; O2SAT 98
--- NOTE | 2023-01-08 11:23 | NUR ---
Pt kept trying to get up to go urinate, urinal given many times with no output. Pt bladder scanned and residual was >1170ml. Straight cath and return of 1250ml. urine specimen sent for U/A.
[2023-01-08 12:37] LABS: BILIRUBIN,URINE NEGATIVE (Neg); CLARITY,URINE CLEAR (Clear); COLOR,URINE YELLOW (Yellow); GLUCOSE, URINE >=1000 mg/dl (Neg); KETONES,URINE NEGATIVE (Neg); LEUKOCYTE ESTERASE ,URINE NEGATIVE (Neg); NITRITES, URINE NEGATIVE (Neg); OCCULT BLOOD,URINE NEGATIVE (Neg); PROTEIN,URINE NEGATIVE (Neg); UROBILINOGEN,URINE 0.2 E.U/dL (0.2-1.0)
[2023-01-08 12:41] LABS: UA COLLECTION TYPE STRAIGHT CATH
[2023-01-08 12:51] LABS: SQUAMOUS EPITHELIAL CELL,UR FEW /LPF (FEW)
[2023-01-08 12:53] LABS: BACTERIA,URINE FEW /HPF (Neg); RBC,URINE 0-2 /HPF (0-2); WBC,URINE 0-4 /HPF (0-4)
== END 2023-01-08 14:35 | DRG 65 ==
LOC: ER 12:36 → ED HOLD 17:05 → PCU 3S 01-06 19:15
PROVIDERS: ADMIT Family Medicine; ATTEND Family Medicine
PROC: B3251ZZ Computerized Tomography (CT Scan) of Bilateral Common Carotid Arteries using Low Osmolar Contrast (ICD-10-PCS; principal; 2023-01-05)
PROC: B32G1ZZ Computerized Tomography (CT Scan) of Bilateral Vertebral Arteries using Low Osmolar Contrast (ICD-10-PCS; 2023-01-05)
PROC: B32R1ZZ Computerized Tomography (CT Scan) of Intracranial Arteries using Low Osmolar Contrast (ICD-10-PCS; 2023-01-05)
PROC: B3281ZZ Computerized Tomography (CT Scan) of Bilateral Internal Carotid Arteries using Low Osmolar Contrast (ICD-10-PCS; 2023-01-05)
DX: I63.9 Cerebral infarction, unspecified (principal); G45.9 Transient cerebral ischemic attack, unspecified; N17.9 Acute kidney failure, unspecified; I50.32 Chronic diastolic (congestive) heart failure; I13.0 Hypertensive heart and chronic kidney disease with heart failure and stage 1 through stage 4 chronic kidney disease, or unspecified chronic kidney disease; I35.0 Nonrheumatic aortic (valve) stenosis; M54.9 Dorsalgia, unspecified; I48.91 Unspecified atrial fibrillation; Z96.651 Presence of right artificial knee joint; N18.30 Chronic kidney disease, stage 3 unspecified; E11.22 Type 2 diabetes mellitus with diabetic chronic kidney disease; E78.5 Hyperlipidemia, unspecified; Z95.2 Presence of prosthetic heart valve; Z95.0 Presence of cardiac pacemaker; Z79.82 Long term (current) use of aspirin; Z79.84 Long term (current) use of oral hypoglycemic drugs; Z79.4 Long term (current) use of insulin; Z79.899 Other long term (current) drug therapy; Z87.891 Personal history of nicotine dependence; Z80.1 Family history of malignant neoplasm of trachea, bronchus and lung; Z79.01 Long term (current) use of anticoagulants; Z99.81 Dependence on supplemental oxygen
CPT/HCPCS: 36415; 70450; 70496; 70498; 71045; 80053; 80061; 81001; 82948; 83735; 83880; 84484; 85025; 85610; 85730; 87081; 93005; 93306; 97161; 97530; 97535; 99285; A4615; C1758; G0378; J1815; J3486; J7120; Q9967

== ENCOUNTER 2023-01-29 14:21 | Emergency (ER) | payer MEDICARE, BC ==
[~2023-01-29] VITALS: Ht 182.9 cm; Wt 1.9 kg
[~2023-01-29 14:21] MED LIST changes: -FURO20TA4 PO; -METAMUCIL PO; -TYLENOL
--- NOTE | 2023-01-29 14:40 | NUR ---
PT BIBA FROM [facility] WITH C/O INCREASING WEAKNESS X 1 WEEK. PT HAS BEEN HAVING MULTIPLE FALLS. 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 FSBS 234mg/dl, AND A 20 GA PIV SL PER EMS.
[2023-01-29 15:05] LABS: BASOPHILS % (AUTO) 0.2 % (0-1); EOSINOPHILS % (AUTO) 0.2 % (0-6); HEMATOCRIT 34.8 % (42.0-52.0); HEMOGLOBIN 11.2 g/dl (14.0-17.9); LYMPHOCYTES # (AUTO) 0.6 X10'3 (1.1-4.8); LYMPHOCYTES % (AUTO) 7.1 % (21-51); MEAN CORPUSCULAR HEMOGLOBIN 28.2 PG (27.0-31.0); MEAN CORPUSCULAR HGB CONC 32.3 g/dL (33.0-36.5); MEAN CORPUSCULAR VOLUME 87.2 FL (78-98); MEAN PLATELET VOLUME 7.4 FL (7.4-10.4); MONOCYTES # (AUTO) 0.9 X10'3 (0-0.9); MONOCYTES % (AUTO) 10.7 % (2-12); NEUTROPHILS # (AUTO) 6.9 X10'3 (1.8-7.7); NEUTROPHILS % (AUTO) 81.8 % (42-75); PLATELET COUNT 239 X10'3 (140-440); RED BLOOD COUNT 3.99 X10'6 (4.70-6.10); RED CELL DISTRIBUTION WIDTH 19.6 % (11.5-14.5); WHITE BLOOD COUNT 8.5 X10'3 (4.5-11.0)
--- NOTE | 2023-01-29 15:05 | NUR ---
PT ALERT AND ORIENTED TO PERSON AND PLACE. PT HAS + L SIDE WEAKNESS. PT RESTING COMFORTABLY, WILL CONTINUE TO MONITOR.
[2023-01-29] MEDS ORDERED: tranexamic acid inj. 1,000 MG in normal saline 100ml IV soln 90 ML IV ONE (15:15)
[2023-01-29] MEDS ORDERED: phytonadione inj. 10 MG in normal saline 100ml IV soln 100 ML IV ONE (15:15)
[2023-01-29 15:18] LABS: APTT 31 SECONDS (22-32); INR 1.2 INR; PROTHROMBIN TIME 13.1 SECONDS (9.0-12.0)
[2023-01-29 15:23] LABS: ALANINE AMINOTRANSFERASE 24 U/L (12-78); ALBUMIN 3.4 G/DL (3.4-5.0); ALBUMIN/GLOBULIN RATIO 0.9 (1.1-1.5); ALKALINE PHOSPHATASE 143 IU/L (46-116); ANION GAP 3 (8-16); ASPARTATE AMINO TRANSFERASE 20 U/L (10-37); BILIRUBIN,TOTAL 0.6 MG/DL (0.1-1.0); BLOOD UREA NITROGEN 33 MG/DL (7-18); CALCIUM 9.1 MG/DL (8.5-10.1); CHLORIDE 102 MMOL/L (99-107); CREATININE 1.65 MG/DL (0.60-1.10); GLUCOSE 234 MG/DL (70-104); SODIUM 135 MMOL/L (135-145); TOTAL CARBON DIOXIDE 29.7 MMOL/L (24-32); eCRCL 1 ML/MIN; eGFR 41 ML/MIN
--- NOTE | 2023-01-29 15:30 | NUR ---
PER PT WILL BE TRANSFERED. STATES HE WANTS HOLD MEDS AT THIS TIME
[2023-01-29 15:31] LABS: ANISOCYTOSIS 2+; ELLIPTOCYTES 1+; PLATELET ESTIMATE NORMAL
[2023-01-29 15:33] LABS: BURR CELLS 1+; POIKILOCYTOSIS FEW
--- NOTE | 2023-01-29 15:59 | NUR ---
REPORT TO EMELYN MIKE AT [facility] AND TO EMS FOR TRANSPORT.
[2023-01-29 16:11] VITALS: BP 117/71; PULSE 70; RESP 18; TEMP 98.3; O2SAT 97
== END 2023-01-29 16:50 | disposition hospice, inpatient (51) ==
LOC: ER 14:22
DX: I62.9 Nontraumatic intracranial hemorrhage, unspecified (principal)
CPT/HCPCS: 36415; 70450; 80053; 85008; 85025; 85610; 85730; 93005; 99284; A6258